=== PATIENT | female | born 1965 | race Caucasian/White ===

== ENCOUNTER → 2019-06-01 | Outpatient (CLI) | payer OTHER ==
[~2019-06-01] MED LIST: DESYREL 50MG50 MG PO; DIOVAN320 MG PO; EFFEXOR-XR150 MG PO; KLOR-CON SPRIN10 MEQ PO; MINOCYCLIN100 MG/CAP PO; NEURONTIN300 MG/CAP PO; NORVASC 5MG5 MG/TAB PO; PREDNISONE10 MG PO; PRILOSEC 20MG20 MG PO
== END ==
LOC: COL.LAB 13:08
DX: K50.10 Crohn's disease of large intestine without complications (principal)

== ENCOUNTER 2019-07-08 18:53 | Emergency (ER) | payer OTHER ==
[~2019-07-08] VITALS: Ht 165.1 cm; Wt 79.1 kg
[2019-07-08 18:59] VITALS: TEMP 98.9
[2019-07-08] MEDS ORDERED: PHENERGAN 25 TA25 MG PO (19:15)
[2019-07-08] MEDS ORDERED: NORCO 325 MG-7.1 TAB PO (19:15)
[2019-07-08 19:17] LABS: BASO # 0.1 (0.0-0.2); BASO % 0.6 % (0.0-2.0); EOS % 0.2 % (0-4.0); GRAN # 9.6 (1.4-6.5); HEMATOCRIT 46.7 % (37.0-47.0); HEMOGLOBIN 14.8 g/dl (12.5-16.0); LYMPH # 1.4 (1.2-3.4); LYMPH % 11.6 % (20.0-51.0); MEAN CELL VOLUME 88 fl (80.0-100.0); MEAN CORPUSCULAR HEMOGLOBIN 28 pg (27.0-31.0); MEAN CORPUSCULAR HGB CONC 32 g/dl (33.0-37.0); MEAN PLATELET VOLUME 10.1 fl (7.4-10.4); MONO # 1.1 (0.1-0.6); PLATELET COUNT 357 K/mm3 (130-400)
[2019-07-08 19:34] LABS: BILIRUBIN,TOTAL 0.7 mg/dL (0.0-1.0); C-REACTIVE PROTEIN 2.6 mg/dL (0.0-0.9); CALCIUM 9.2 mg/dL (8.4-10.2); CREATININE, serum 1.44 (0.52-1.25); POTASSIUM 3.7 mmol/L (3.4-5.0); TOTAL PROTEIN 7.9 gm/dL (6.4-8.2)
[2019-07-08 20:45] LABS: COLLECTION METHOD CLEAN CATCH
[2019-07-08 20:58] LABS: MUCOUS Present /lpf; PH 5 (5-8); SQUAMOUS EPITHELIAL 0-2 /hpf; URINE APPEARANCE Hazy; URINE BACTERIA Rare /hpf; URINE BILIRUBIN Negative (NEGATIVE); URINE BLOOD Negative (NEGATIVE); URINE COLOR Yellow; URINE GLUCOSE Negative (NEGATIVE); URINE KETONE Negative (NEGATIVE); URINE LEUKOCYTE ESTERASE Trace (NEGATIVE); URINE NITRATE Negative (NEGATIVE); URINE PROTEIN(semi-quant) Negative (NEGATIVE); URINE RBC 0-2 /hpf; URINE UROBILINOGEN Negative (NEGATIVE)
[2019-07-08 22:00] VITALS: BP 95/61; PULSE 82
== END 2019-07-08 22:00 | disposition home or self-care (01) ==
LOC: COL.ER 18:53
PROVIDERS: Family Medicine
DX: K50.90 Crohn's disease, unspecified, without complications (principal); E86.0 Dehydration
CPT/HCPCS: J2405; J7030; J7120

== ENCOUNTER 2019-07-26 01:36 | Emergency (ER) | payer OTHER ==
[~2019-07-26] VITALS: Ht 165.1 cm; Wt 76.4 kg
[~2019-07-26 01:36] MED LIST changes: +NORCO 325 MG-7.1 TAB PO; +PHENERGAN 25 TA25 MG PO
[2019-07-26 01:47] VITALS: TEMP 99.3
[2019-07-26] MEDS ORDERED: PHENERGAN 25 TA25 MG PO ×2 (02:26→08:22)
[2019-07-26 02:45] LABS: HEMATOCRIT 39.9 % (37.0-47.0); HEMOGLOBIN 13.3 g/dl (12.5-16.0); MEAN CELL VOLUME 84 fl (80.0-100.0); MEAN CORPUSCULAR HEMOGLOBIN 28 pg (27.0-31.0); MEAN CORPUSCULAR HGB CONC 33 g/dl (33.0-37.0); MEAN PLATELET VOLUME 9.8 fl (7.4-10.4); PLATELET COUNT 436 K/mm3 (130-400); RED BLOOD COUNT 4.78 M/mm3 (4.10-5.30)
[2019-07-26 02:57] LABS: ALANINE AMINOTRANSFERASE 7 U/L (4-34); ALBUMIN 2.5 gm/dL (3.5-5.0); ALKALINE PHOSPHATASE 100 U/L (50-136); ANION GAP 5 mmol/L (7-16); AST,SGOT 14 U/L (15-37); BILIRUBIN,TOTAL 0.8 mg/dL (0.0-1.0); BLOOD UREA NITROGEN 8 mg/dL (7-17); C-REACTIVE PROTEIN 7.2 mg/dL (0.0-0.9); CALCIUM 7.5 mg/dL (8.4-10.2); CARBON DIOXIDE 32 mmol/L (22-30); CHLORIDE 93 mmol/L (98-107); CREATININE, serum 0.63 (0.52-1.25); GLUCOSE 111 mg/dL (74-106); SODIUM 131 mmol/L (137-145); TOTAL PROTEIN 5.8 gm/dL (6.4-8.2)
[2019-07-26 03:05] LABS: LIPASE < 10 U/L (23-300); POTASSIUM 2.6 mmol/L (3.4-5.0)
[2019-07-26 03:09] LABS: LYMPHOCYTE 27 % (20.0-51.0); NEUTROPHILS 50 % (42.0-75.2); PLATELET ESTIMATE NORMAL (NORMAL)
[2019-07-26 05:31] LABS: COLLECTION METHOD CLEAN CATCH
[2019-07-26 05:37] LABS: MUCOUS Present /lpf; PH 6 (5-8); SQUAMOUS EPITHELIAL 0-2 /hpf; URINE APPEARANCE Clear; URINE BACTERIA Rare /hpf; URINE BILIRUBIN Negative (NEGATIVE); URINE BLOOD Negative (NEGATIVE); URINE COLOR Yellow; URINE GLUCOSE Negative (NEGATIVE); URINE KETONE Trace (NEGATIVE); URINE LEUKOCYTE ESTERASE Negative (NEGATIVE); URINE NITRATE Negative (NEGATIVE); URINE PROTEIN(semi-quant) Negative (NEGATIVE); URINE RBC 0-2 /hpf; URINE UROBILINOGEN Negative (NEGATIVE)
[2019-07-26 07:11] LABS: CALCIUM 6.8 mg/dL (8.4-10.2); CREATININE, serum 0.58 (0.52-1.25); POTASSIUM 3.3 mmol/L (3.4-5.0)
[2019-07-26 08:20] VITALS: BP 117/71; PULSE 73
[2019-07-26] MEDS ORDERED: ZOFRAN ODT4 MG PO (08:22)
[2019-07-26] MEDS ORDERED: K-DUR20 MEQ PO (08:22)
== END 2019-07-26 08:39 | disposition home or self-care (01) ==
LOC: COL.ER 01:36
PROVIDERS: Emergency Medicine; Physician Assistant
DX: E87.6 Hypokalemia (principal); I11.0 Hypertensive heart disease with heart failure; I50.9 Heart failure, unspecified; K21.9 Gastro-esophageal reflux disease without esophagitis; J44.9 Chronic obstructive pulmonary disease, unspecified; M79.7 Fibromyalgia; K50.90 Crohn's disease, unspecified, without complications; Z87.891 Personal history of nicotine dependence; Z90.49 Acquired absence of other specified parts of digestive tract; Z98.51 Tubal ligation status
CPT/HCPCS: C9113; J1170; J2405; J2550; J2930; J3010; J3480; J7030

== ENCOUNTER 2019-08-01 15:08 | Inpatient (IN) | payer OTHER ==
[~2019-08-01] VITALS: Ht 165.1 cm; Wt 73.4 kg
[~2019-08-01 15:08] MED LIST changes: +DILAUDID 2MG TAB2 MG PO; +DULOXETINE HCL40 MG PO; +K-DUR20 MEQ PO; +MEDROL 4MG DOSPA4 MG PO; +ZOFRAN ODT4 MG PO
[2019-08-01 16:07] LABS: HEMATOCRIT 42.6 % (37.0-47.0); HEMOGLOBIN 13.9 g/dl (12.5-16.0); MEAN CELL VOLUME 87 fl (80.0-100.0); MEAN CORPUSCULAR HEMOGLOBIN 29 pg (27.0-31.0); MEAN CORPUSCULAR HGB CONC 33 g/dl (33.0-37.0); MEAN PLATELET VOLUME 9.3 fl (7.4-10.4); PLATELET COUNT 463 K/mm3 (130-400); RED BLOOD COUNT 4.88 M/mm3 (4.10-5.30); REDCELL DISTRIBUTION WIDTH-CV 14.3 % (11.5-14.5)
[2019-08-01 16:19] LABS: ALBUMIN 2.7 gm/dL (3.5-5.0); BILIRUBIN,TOTAL 0.7 mg/dL (0.0-1.0); C-REACTIVE PROTEIN 3.5 mg/dL (0.0-0.9); CALCIUM 8.1 mg/dL (8.4-10.2); CREATININE, serum 0.74 (0.52-1.25); TOTAL PROTEIN 6.2 gm/dL (6.4-8.2)
[2019-08-01 17:04] LABS: BAND 1 % (0-10); LYMPHOCYTE 9 % (20.0-51.0); NEUTROPHILS 81 % (42.0-75.2)
[2019-08-01 17:06] LABS: HYPOCHROMIA 1+; PLATELET ESTIMATE INCREASED (NORMAL)
[2019-08-01 17:32] LABS: COLLECTION METHOD CLEAN CATCH
[2019-08-01 17:41] LABS: PH 6 (5-8); SQUAMOUS EPITHELIAL 0-2 /hpf; URINE APPEARANCE Clear; URINE BACTERIA Rare /hpf; URINE BILIRUBIN Negative (NEGATIVE); URINE BLOOD Negative (NEGATIVE); URINE COLOR Yellow; URINE GLUCOSE Negative (NEGATIVE); URINE KETONE Negative (NEGATIVE); URINE LEUKOCYTE ESTERASE Negative (NEGATIVE); URINE NITRATE Negative (NEGATIVE); URINE PROTEIN(semi-quant) Negative (NEGATIVE); URINE RBC 0-2 /hpf; URINE UROBILINOGEN Negative (NEGATIVE)
[2019-08-01 21:49] VITALS: BP 127/82; PULSE 91; TEMP 99.1
[2019-08-01 23:46] VITALS: BP 130/90; PULSE 81; TEMP 98.1
--- NOTE | 2019-08-02 00:23 | NUR ---
PATIENT CAME TO THE FLOOR FROM THE EMERGENCY ROOM. PATIENT WAS JUST COMPLAINING OF BEING COLD. WARM BLANKETS WERE GIVEN TO THE PATIENT. PATIENT IS ALERT AND ORIENTATED AND ABLE TO ANSWER QUESTIONS. PATIENT HAS AN INT TO HER LEFT ANTICUBIDAL. PATIENT HAS ANSWERED SOME QUESTIONS TO THE INFECTIOUS DISEASE SCREENING BUT THIS NURSE FEELS IF THEY ARE RELATED TO HER DIAGNOSIS BECAUSE SHE HAS NOT EATEN IN 5 DAYS, HAS NOT FELT GOOD, AND PATIENT HAS HAD NO ILL CONTACTS TO HER KNOWLEDGE.
[2019-08-02 03:39] VITALS: BP 119/75; PULSE 69; TEMP 97.5
--- NOTE | 2019-08-02 05:09 | NUR ---
PATIENT HAS HAD A PRETTY UNEVENTFUL NIGHT. SHE WAS ABLE TO REST AND NEEDED ONE DOSE OF PAIN MEDICATION. PATIENT TOLERATED HER CLEAR LIQUID DIET. IS INDEPENDENT IN HER ROOM. CALLS WHEN SHE NEEDS ANYTHING. DENIES ANY NEEDS AT THIS TIME. WILL REPORT OFF TO DAY SHIFT.
[2019-08-02 07:34] VITALS: BP 120/76; PULSE 75; TEMP 98
[2019-08-02 07:38] LABS: BASO % 0.3 % (0.0-2.0); GRAN # 10.4 (1.4-6.5); GRAN % 87.8 % (42.2-75.2); HEMATOCRIT 39.1 % (37.0-47.0); HEMOGLOBIN 12.7 g/dl (12.5-16.0); LYMPH # 1.1 (1.2-3.4); LYMPH % 8.9 % (20.0-51.0); MEAN CELL VOLUME 86 fl (80.0-100.0); MEAN CORPUSCULAR HEMOGLOBIN 28 pg (27.0-31.0); MEAN CORPUSCULAR HGB CONC 33 g/dl (33.0-37.0); MEAN PLATELET VOLUME 9.5 fl (7.4-10.4); MONO # 0.3 (0.1-0.6); MONO % 2.3 % (1.7-9.3); PLATELET COUNT 434 K/mm3 (130-400); RED BLOOD COUNT 4.53 M/mm3 (4.10-5.30); REDCELL DISTRIBUTION WIDTH-CV 14.4 % (11.5-14.5)
[2019-08-02 07:55] LABS: CALCIUM 7.8 mg/dL (8.4-10.2); CREATININE, serum 0.54 (0.52-1.25); POTASSIUM 3.8 mmol/L (3.4-5.0)
[2019-08-02 11:46] VITALS: BP 126/87; PULSE 75; TEMP 98.2
--- NOTE | 2019-08-02 13:37 | NUR ---
ANA ROSA met with the patient to complete initial intake. The patient lives in [place] with her , Tommy and their son, Titus. The patient denies DME use and receives assistance with ADLs from Tommy. The patient has not had HHS but may consider it. 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 The patient's PCP is THAI Deleon on [address] and patient receives medications from there as well. The patient does not have advanced directives in the EMR but was interested in a DPOA-HC form. Form provided. The patient plans to return home at discharge. There are no additional needs at this time.
[2019-08-02 15:48] VITALS: BP 124/83; PULSE 86; TEMP 97.8
[2019-08-02 16:51] LABS: CLOSTRIDIUM DIFF A/B NEG; CLOSTRIDIUM DIFF A/B INTERP No C.diff present
[2019-08-02] MEDS ORDERED: ZYRTEC 10MG10 MG PO (17:34)
[2019-08-02 19:19] VITALS: BP 133/85; PULSE 94; TEMP 97.8
--- NOTE | 2019-08-02 20:00 | NUR ---
Received report from [facility]. A/Ox4. c/o pain to abdomen, rate 4-5/10, prn pain meds adminsitered and zofran as requested by pt. Independent in room. Able to make needs known. IV to LAC intact, with fluids infusing, dressing CDI. Pt understands POC and NPO at midnight status. Needs met at this time. call light within reach.
[2019-08-02 23:18] VITALS: BP 134/88; PULSE 75; TEMP 97.6
[2019-08-03] VITALS (13 sets, daily range): BP systolic 110–136; BP diastolic 69–94; PULSE 54–73; TEMP 97.3–98.2
--- NOTE | 2019-08-03 03:12 | NUR ---
Pt requested pain and nausea meds for abdominal pain. PRN dialudid and zofran administered as requested. Warm blanket provided as requested. NPO since midnight. Call light within reach.
--- NOTE | 2019-08-03 06:22 | NUR ---
Administered pain and nausea meds as requested by pt. Scheduled meds given. Preop fluids and meds started. call light witin reach.
--- NOTE | 2019-08-03 06:55 | NUR ---
Report given to [facility].
--- NOTE | 2019-08-03 06:57 | NUR ---
Hugh transported pt via bed to procedure. report given to [facility]acarias OR
[2019-08-03 07:01] LABS: BASO # 0.1 (0.0-0.2); BASO % 0.3 % (0.0-2.0); GRAN # 15.6 (1.4-6.5); GRAN % 86.1 % (42.2-75.2); HEMATOCRIT 43.2 % (37.0-47.0); HEMOGLOBIN 13.9 g/dl (12.5-16.0); LYMPH # 1.3 (1.2-3.4); LYMPH % 7.2 % (20.0-51.0); MEAN CELL VOLUME 88 fl (80.0-100.0); MEAN CORPUSCULAR HEMOGLOBIN 28 pg (27.0-31.0); MEAN CORPUSCULAR HGB CONC 32 g/dl (33.0-37.0); MEAN PLATELET VOLUME 9.7 fl (7.4-10.4); MONO % 5.2 % (1.7-9.3); PLATELET COUNT 529 K/mm3 (130-400); REDCELL DISTRIBUTION WIDTH-CV 14.6 % (11.5-14.5)
[2019-08-03 07:05] LABS: ALBUMIN 2.8 gm/dL (3.5-5.0); BILIRUBIN,TOTAL 0.6 mg/dL (0.0-1.0); CALCIUM 8.4 mg/dL (8.4-10.2); CREATININE, serum 0.54 (0.52-1.25); MAGNESIUM 2.1 mg/dL (1.6-2.3); POTASSIUM 3.8 mmol/L (3.4-5.0); TOTAL PROTEIN 6.5 gm/dL (6.4-8.2)
--- NOTE | 2019-08-03 09:49 | NUR ---
PT RETURNED FROM PORT PLACEMENT THIS AM. PORT NOTED TO LEFT CHEST, LATERAL INCISION ABOVE ACCESSED PORT APPROX GLUED WITH TEGADERM ON TOP. NO DRAINAGE NOTED. PT REPORTS SITE TENDER 10/25. PRN DILAUDID GIVEN FOR THAT AND RECTAL, ROCÍO LEG PAIN. AOX4. AT BEDSIDE. BREAKFAST AT BEDSIDE AND PT CURRENTLY EATING. POST OP VITALS STARTED. IVF RESTARTED. PT REPORTS DIARHHREA X3 OVERNIGHT. CURRENTLY IN BATHROM. WILL CONT TO MONITOR
--- NOTE | 2019-08-03 19:22 | NUR ---
PATIENT UP AMBULATING INDEPENDENTLY IN ROOM OR WARD, HAS S.O. WITH HER AT TIME OF CHANGE OF SHIFT REPORT FROM DAY SHIFT NURSE, MÓNICA. IV FLUIDS INFUSING VIA INFUSAPORT TO LEFT CHEST WITH NO PROBLEMS. PATIENT STATING SHE IS WANTING HER NEXT PAIN PILL WITH HS MEDS TO BE TAKEN AT SAME WITH ZOFRAN IV, ORDERED EVERY 6HR PRN.
--- NOTE | 2019-08-04 03:00 | NUR ---
PATIENT SLEEPING W/NONLABORED, EVEN BREATHING OBSERVED. DOES NOT AWAKEN WHEN DOOR TO ROOM IS OPENED BY STAFF. IVF PATENT TO LEFT CHEST INFUSAPORT.
[2019-08-04 04:30] VITALS: BP 132/66; PULSE 53; TEMP 98.3
--- NOTE | 2019-08-04 07:30 | NUR ---
PATIENT RESTING IN BED DURING CHANGE OF SHIFT REPORT GIVEN TO DAY SHIFT NURSEDEREK.
[2019-08-04 07:38] VITALS: BP 122/70; PULSE 64; TEMP 97.9
[2019-08-04 07:38] LABS: BASO % 0.1 % (0.0-2.0); GRAN # 12.1 (1.4-6.5); GRAN % 87.6 % (42.2-75.2); LYMPH % 7.2 % (20.0-51.0); MEAN CELL VOLUME 89 fl (80.0-100.0); MEAN CORPUSCULAR HGB CONC 32 g/dl (33.0-37.0); MEAN PLATELET VOLUME 9.4 fl (7.4-10.4); MONO # 0.5 (0.1-0.6); MONO % 3.9 % (1.7-9.3); PLATELET COUNT 442 K/mm3 (130-400); RED BLOOD COUNT 3.88 M/mm3 (4.10-5.30)
[2019-08-04 07:39] LABS: HEMATOCRIT 34.6 % (37.0-47.0); MEAN CORPUSCULAR HEMOGLOBIN 28 pg (27.0-31.0)
[2019-08-04 07:56] LABS: CALCIUM 7.7 mg/dL (8.4-10.2); CREATININE, serum 0.55 (0.52-1.25); POTASSIUM 3.2 mmol/L (3.4-5.0)
[2019-08-04] MEDS ORDERED: BENTYL 10MG10 MG/CAP PO (10:29)
[2019-08-04] MEDS ORDERED: DILAUDID 2MG TAB2 MG PO (10:30)
[2019-08-04] MEDS ORDERED: PROTONIX 40MG T40 MG PO (10:56)
[2019-08-04] MEDS ORDERED: PREDNISONE10 MG PO (10:56)
[2019-08-04 12:25] VITALS: BP 132/77; PULSE 57; TEMP 97.8
--- NOTE | 2019-08-04 13:31 | NUR ---
The patient is to tentatively discharge home today, 08/03 with her . There are no additional needs at this time.
--- NOTE | 2019-08-04 13:59 | NUR ---
Patient is alert and oriented. pain at 3/10 this morning. Patient got written medication order for Prednisone, dilaudid 2mg, I called medication order for Protonic and Dicyclomine. patient was informed advised to schedule an appointment with GI and PCP provider. Heparinized 500Unit was infused before Port was deaccessed. Patient refused last dose of Potassium effer 20meq, she said she will take the last dose at home. Patient discharged with Spouse.
== END 2019-08-04 14:00 | disposition home or self-care (01) | DRG 641 ==
LOC: COL.ER 15:08 → MEDICAL 20:04 → SURG 08-02 12:34 → MEDICAL 08-02 12:35 → SURG 08-02 12:37 → MEDICAL 08-02 12:37
PROVIDERS: Physician Assistant; Surgery; ADMIT Student in an Organized Health Care Education/Training Program
PROC: 02HV33Z Insertion of Infusion Device into Superior Vena Cava, Percutaneous Approach (ICD-10-PCS; principal; 2019-08-03 07:30)
DX: E86.0 Dehydration (principal); K50.10 Crohn's disease of large intestine without complications; I10 Essential (primary) hypertension; E78.5 Hyperlipidemia, unspecified; M06.9 Rheumatoid arthritis, unspecified; M79.7 Fibromyalgia; G89.29 Other chronic pain; E87.1 Hypo-osmolality and hyponatremia; E87.6 Hypokalemia; D72.829 Elevated white blood cell count, unspecified; T38.0X5A Adverse effect of glucocorticoids and synthetic analogues, initial encounter; Z87.891 Personal history of nicotine dependence; Z98.51 Tubal ligation status; Z90.49 Acquired absence of other specified parts of digestive tract; Z98.84 Bariatric surgery status
CPT/HCPCS: 99223-AI; 99233-AI; 99239; C1788; G0378; J1170; J1644; J1650; J1885; J2405; J2930; J3480; J7030; J7120

== ENCOUNTER 2019-08-08 14:00 | Outpatient (RCR) | payer OTHER ==
[2019-06-27 11:54] LABS: HEMATOCRIT 42.1 % (37.0-47.0); HEMOGLOBIN 13.7 g/dl (12.5-16.0); MEAN CELL VOLUME 86 fl (80.0-100.0); MEAN CORPUSCULAR HEMOGLOBIN 28 pg (27.0-31.0); MEAN CORPUSCULAR HGB CONC 33 g/dl (33.0-37.0); MEAN PLATELET VOLUME 10.2 fl (7.4-10.4); PLATELET COUNT 384 K/mm3 (130-400); REDCELL DISTRIBUTION WIDTH-CV 14.1 % (11.5-14.5)
[2019-06-27 12:13] VITALS: BP 103/68; PULSE 108; TEMP 98.7
[2019-06-27 13:20] VITALS: BP 115/79; PULSE 99
[2019-06-27 13:30] VITALS: BP 117/85; PULSE 96
[2019-06-27 13:40] VITALS: BP 112/78; PULSE 96
[2019-06-27 13:50] VITALS: BP 113/80; PULSE 95
[2019-06-27 14:20] VITALS: BP 108/77; PULSE 97
[2019-07-11 14:00] LABS: HEMATOCRIT 43.8 % (37.0-47.0); HEMOGLOBIN 14.1 g/dl (12.5-16.0); MEAN CELL VOLUME 87 fl (80.0-100.0); MEAN CORPUSCULAR HEMOGLOBIN 28 pg (27.0-31.0); MEAN CORPUSCULAR HGB CONC 32 g/dl (33.0-37.0); MEAN PLATELET VOLUME 10.1 fl (7.4-10.4); PLATELET COUNT 361 K/mm3 (130-400); RED BLOOD COUNT 5.06 M/mm3 (4.10-5.30)
[2019-07-11 15:03] VITALS: BP 94/70; PULSE 75; TEMP 98.4
[~2019-08-08] VITALS: Ht 165.1 cm; Wt 78.4 kg
[~2019-08-08 14:00] MED LIST changes: +BENTYL 10MG10 MG/CAP PO; +PROTONIX 40MG T40 MG PO; +ZYRTEC 10MG10 MG PO
[2019-08-08 14:41] LABS: HEMATOCRIT 42.2 % (37.0-47.0); HEMOGLOBIN 13.6 g/dl (12.5-16.0); MEAN CELL VOLUME 89 fl (80.0-100.0); MEAN CORPUSCULAR HEMOGLOBIN 29 pg (27.0-31.0); MEAN CORPUSCULAR HGB CONC 32 g/dl (33.0-37.0); MEAN PLATELET VOLUME 9.4 fl (7.4-10.4); PLATELET COUNT 371 K/mm3 (130-400); RED BLOOD COUNT 4.77 M/mm3 (4.10-5.30)
[2019-08-08 16:09] VITALS: BP 142/96; PULSE 69; TEMP 98.9
[2019-08-25] MEDS ORDERED: [UNRECOGNIZED DRUG - REMARK] PO (17:15)
[2019-08-29] MEDS ORDERED: DILAUDID 2MG TAB2 MG PO (10:23)
[2019-08-29] MEDS ORDERED: DIFLUCAN 100MG100 MG PO (10:23)
[2019-08-29] MEDS ORDERED: K-DUR20 MEQ PO (10:24)
[2019-08-29] MEDS ORDERED: PREDNISONE10 MG PO (10:28)
[2019-08-29] MEDS ORDERED: ULTRAM 50MG TAB50 MG PO (13:48)
[2019-09-01] MEDS ORDERED: DILAUDID 4MG TAB4 MG PO (02:47)
== END 2019-08-08 16:28 | disposition home or self-care (01) ==
LOC: EUO 14:00
PROVIDERS: Internal Medicine Gastroenterology
DX: K50.111 Crohn's disease of large intestine with rectal bleeding (principal); Z79.899 Other long term (current) drug therapy
CPT/HCPCS: J0690; J1100; J1644; J2250; J2704; J3010; J3380; J7030; J7050

== ENCOUNTER 2019-08-17 11:02 | Emergency (ER) | payer OTHER ==
[~2019-08-17] VITALS: Ht 165.1 cm; Wt 70.0 kg
[2019-08-17 11:17] VITALS: PULSE 125; TEMP 96.1
[2019-08-17 12:00] LABS: BASO % 0.4 % (0.0-2.0); EOS % 0.1 % (0-4.0); GRAN # 8.9 (1.4-6.5); GRAN % 85.6 % (42.2-75.2); HEMATOCRIT 43.1 % (37.0-47.0); HEMOGLOBIN 14.3 g/dl (12.5-16.0); LYMPH # 0.6 (1.2-3.4); LYMPH % 6.1 % (20.0-51.0); MEAN CELL VOLUME 87 fl (80.0-100.0); MEAN CORPUSCULAR HEMOGLOBIN 29 pg (27.0-31.0); MEAN CORPUSCULAR HGB CONC 33 g/dl (33.0-37.0); MEAN PLATELET VOLUME 9.7 fl (7.4-10.4); MONO # 0.7 (0.1-0.6); PLATELET COUNT 297 K/mm3 (130-400); RED BLOOD COUNT 4.97 M/mm3 (4.10-5.30); REDCELL DISTRIBUTION WIDTH-CV 14.6 % (11.5-14.5)
[2019-08-17 12:17] LABS: ALBUMIN 3.2 gm/dL (3.5-5.0); C-REACTIVE PROTEIN 6.8 mg/dL (0.0-0.9); CALCIUM 8.6 mg/dL (8.4-10.2); CREATININE, serum 0.87 (0.52-1.25); TOTAL PROTEIN 6.6 gm/dL (6.4-8.2)
[2019-08-17 12:35] LABS: POTASSIUM 2.7 mmol/L (3.4-5.0)
[2019-08-17] MEDS ORDERED: PHENERGAN 25 TA25 MG PO ×2 (14:52→15:45)
[2019-08-17] MEDS ORDERED: K-DUR20 MEQ PO ×2 (14:52→15:45)
[2019-08-17] MEDS ORDERED: DILAUDID 2MG TAB2 MG PO (14:52)
[2019-08-17 15:50] VITALS: BP 129/97
== END 2019-08-17 15:50 | disposition home or self-care (01) ==
LOC: COL.ER 11:02
PROVIDERS: Emergency Medicine
DX: K50.90 Crohn's disease, unspecified, without complications (principal); E87.6 Hypokalemia; K62.89 Other specified diseases of anus and rectum; Z79.52 Long term (current) use of systemic steroids
CPT/HCPCS: J0780; J1170; J1200; J1885; J3475; J3480; J7030

== ENCOUNTER 2019-09-05 12:50 | Emergency (ER) | payer OTHER ==
[~2019-09-05] VITALS: Ht 165.1 cm; Wt 69.1 kg
[2019-09-05 12:56] VITALS: TEMP 98.4
[2019-09-05 14:02] LABS: HEMATOCRIT 39.1 % (37.0-47.0); HEMOGLOBIN 12.8 g/dl (12.5-16.0); MEAN CELL VOLUME 88 fl (80.0-100.0); MEAN CORPUSCULAR HEMOGLOBIN 29 pg (27.0-31.0); MEAN CORPUSCULAR HGB CONC 33 g/dl (33.0-37.0); MEAN PLATELET VOLUME 9.1 fl (7.4-10.4); PLATELET COUNT 335 K/mm3 (130-400); RED BLOOD COUNT 4.47 M/mm3 (4.10-5.30)
[2019-09-05 14:13] LABS: CALCIUM 8.3 mg/dL (8.4-10.2); CREATININE, serum 0.73 (0.52-1.25); TOTAL PROTEIN 6.4 gm/dL (6.4-8.2)
[2019-09-05 14:14] LABS: BILIRUBIN,TOTAL 0.6 mg/dL (0.0-1.0)
[2019-09-05 14:26] LABS: POTASSIUM 2.7 mmol/L (3.4-5.0)
[2019-09-05 15:03] LABS: EOSINOPHIL 1 % (0-4); LYMPHOCYTE 27 % (20.0-51.0); NEUTROPHILS 66 % (42.0-75.2)
[2019-09-05 15:06] LABS: ANISOCYTOSIS 1+; HYPOCHROMIA 1+; PLATELET ESTIMATE NORMAL (NORMAL)
[2019-09-05 16:20] VITALS: BP 112/84; PULSE 104
== END 2019-09-05 16:55 | disposition home or self-care (01) ==
LOC: COL.ER 12:50
PROVIDERS: Emergency Medicine
DX: K50.90 Crohn's disease, unspecified, without complications (principal); E87.6 Hypokalemia; I10 Essential (primary) hypertension; J44.9 Chronic obstructive pulmonary disease, unspecified; Z90.49 Acquired absence of other specified parts of digestive tract; Z79.52 Long term (current) use of systemic steroids
CPT/HCPCS: J1170; J1644; J2550; J3480; J7030

== ENCOUNTER → 2019-09-05 | Outpatient (CLI) | payer OTHER ==
[~2019-09-05] MED LIST changes: +DIFLUCAN 100MG100 MG PO; +DILAUDID 4MG TAB4 MG PO; +ULTRAM 50MG TAB50 MG PO; +[UNRECOGNIZED DRUG - REMARK] PO
== END ==
LOC: ZCOL.LAB 12:00
DX: E87.8 Other disorders of electrolyte and fluid balance, not elsewhere classified (principal)

== ENCOUNTER 2019-09-08 22:07 | Emergency (ER) | payer OTHER ==
[~2019-09-08] VITALS: Ht 165.1 cm; Wt 70.5 kg
[2019-09-09 00:15] LABS: BASO % 0.4 % (0.0-2.0); EOS # 0.1 (0.0-0.7); EOS % 1.1 % (0-4.0); GRAN % 67.3 % (42.2-75.2); HEMOGLOBIN 11.7 g/dl (12.5-16.0); LYMPH % 19.4 % (20.0-51.0); MEAN CELL VOLUME 87 fl (80.0-100.0); MEAN CORPUSCULAR HEMOGLOBIN 29 pg (27.0-31.0); MEAN CORPUSCULAR HGB CONC 33 g/dl (33.0-37.0); MONO # 1.1 (0.1-0.6); MONO % 10.9 % (1.7-9.3); PLATELET COUNT 368 K/mm3 (130-400); RED BLOOD COUNT 4.09 M/mm3 (4.10-5.30)
[2019-09-09 00:16] LABS: HEMATOCRIT 35.7 % (37.0-47.0)
[2019-09-09 00:31] LABS: ALBUMIN 2.9 gm/dL (3.5-5.0); BILIRUBIN,TOTAL 0.6 mg/dL (0.0-1.0); CALCIUM 8.3 mg/dL (8.4-10.2); CREATININE, serum 0.73 (0.52-1.25); POTASSIUM 3.2 mmol/L (3.4-5.0)
[2019-09-09 03:29] VITALS: BP 148/87; PULSE 84; TEMP 98.6
== END 2019-09-09 03:35 | disposition home or self-care (01) ==
LOC: COL.ER 22:07
PROVIDERS: Physician Assistant
DX: K50.90 Crohn's disease, unspecified, without complications (principal); Z90.49 Acquired absence of other specified parts of digestive tract; Z98.84 Bariatric surgery status; Z86.39 Personal history of other endocrine, nutritional and metabolic disease
CPT/HCPCS: J1170; J2550; J7030

== ENCOUNTER 2019-10-07 18:40 | Emergency (ER) | payer OTHER ==
[~2019-10-07] VITALS: Ht 165.1 cm; Wt 68.2 kg
[2019-10-07 18:58] VITALS: TEMP 97.5
[2019-10-07 20:07] LABS: BASO % 0.6 % (0.0-2.0); EOS # 0.4 (0.0-0.7); EOS % 6.4 % (0-4.0); GRAN # 3.1 (1.4-6.5); GRAN % 45.7 % (42.2-75.2); HEMATOCRIT 37.5 % (37.0-47.0); HEMOGLOBIN 11.8 g/dl (12.5-16.0); LYMPH # 2.4 (1.2-3.4); LYMPH % 35.5 % (20.0-51.0); MEAN CELL VOLUME 87 fl (80.0-100.0); MEAN CORPUSCULAR HEMOGLOBIN 28 pg (27.0-31.0); MEAN CORPUSCULAR HGB CONC 32 g/dl (33.0-37.0); MEAN PLATELET VOLUME 10.3 fl (7.4-10.4); MONO # 0.8 (0.1-0.6); MONO % 11.7 % (1.7-9.3); PLATELET COUNT 307 K/mm3 (130-400); RED BLOOD COUNT 4.29 M/mm3 (4.10-5.30); REDCELL DISTRIBUTION WIDTH-CV 12.9 % (11.5-14.5)
[2019-10-07 20:30] LABS: BILIRUBIN,TOTAL 0.5 mg/dL (0.0-1.0); C-REACTIVE PROTEIN 0.6 mg/dL (0.0-0.9); CALCIUM 8.6 mg/dL (8.4-10.2); CREATININE, serum 0.49 (0.52-1.25); TOTAL PROTEIN 6.1 gm/dL (6.4-8.2)
[2019-10-07 20:43] LABS: POTASSIUM 2.8 mmol/L (3.4-5.0)
[2019-10-07 22:44] LABS: COLLECTION METHOD CLEAN CATCH
[2019-10-07 22:51] LABS: MUCOUS Present /lpf; PH 6 (5-8); SQUAMOUS EPITHELIAL 0-2 /hpf; URINE APPEARANCE Clear; URINE BACTERIA None Seen /hpf; URINE BILIRUBIN Negative (NEGATIVE); URINE BLOOD Negative (NEGATIVE); URINE COLOR Yellow; URINE GLUCOSE Negative (NEGATIVE); URINE KETONE Negative (NEGATIVE); URINE LEUKOCYTE ESTERASE Negative (NEGATIVE); URINE NITRATE Negative (NEGATIVE); URINE PROTEIN(semi-quant) Negative (NEGATIVE); URINE RBC 0-2 /hpf; URINE UROBILINOGEN Negative (NEGATIVE)
[2019-10-08 00:20] VITALS: BP 106/83; PULSE 84
== END 2019-10-08 00:25 | disposition home or self-care (01) ==
LOC: COL.ER 18:40
PROVIDERS: Family Medicine
DX: E87.6 Hypokalemia (principal); R06.00 Dyspnea, unspecified; R51 Headache; Z79.52 Long term (current) use of systemic steroids; Z93.3 Colostomy status; Z88.0 Allergy status to penicillin; Z88.6 Allergy status to analgesic agent
CPT/HCPCS: J1170; J1644; J2405; J3480; J7120; Q9967

== ENCOUNTER 2020-03-10 14:21 | Emergency (ER) | payer MEDICARE, OTHER ==
[~2020-03-10] VITALS: Ht 165.1 cm; Wt 81.8 kg
[~2020-03-10 14:21] MED LIST changes: +NATURAL MAGNES200 MG PO
[2020-03-10 14:32] VITALS: BP 126/94; PULSE 82; TEMP 97.6
== END 2020-03-10 15:20 | disposition left against medical advice (07) ==
LOC: COL.ER 14:21
DX: M79.604 Pain in right leg (principal)

== ENCOUNTER 2020-03-27 13:37 | Emergency (ER) | payer MEDICARE, OTHER ==
[~2020-03-27] VITALS: Ht 165.1 cm; Wt 81.8 kg
[2020-03-27 13:45] VITALS: TEMP 98
[2020-03-27 14:39] LABS: BASO # 0.1 (0.0-0.2); BASO % 0.7 % (0.0-2.0); EOS # 0.3 (0.0-0.7); EOS % 3.1 % (0-4.0); GRAN # 4.2 (1.4-6.5); GRAN % 50.8 % (42.2-75.2); HEMATOCRIT 46.3 % (37.0-47.0); HEMOGLOBIN 15.8 g/dl (12.5-16.0); LYMPH # 2.9 (1.2-3.4); LYMPH % 35.1 % (20.0-51.0); MEAN CELL VOLUME 89 fl (80.0-100.0); MEAN CORPUSCULAR HEMOGLOBIN 31 pg (27.0-31.0); MEAN CORPUSCULAR HGB CONC 34 g/dl (33.0-37.0); MEAN PLATELET VOLUME 10.1 fl (7.4-10.4); MONO # 0.8 (0.1-0.6); MONO % 10.1 % (1.7-9.3); PLATELET COUNT 312 K/mm3 (130-400); RED BLOOD COUNT 5.18 M/mm3 (4.10-5.30); REDCELL DISTRIBUTION WIDTH-CV 11.9 % (11.5-14.5)
[2020-03-27 14:46] LABS: ALBUMIN 4.3 gm/dL (3.5-5.0); BILIRUBIN,TOTAL 0.6 mg/dL (0.0-1.0); CALCIUM 9.5 mg/dL (8.4-10.2); CREATININE, serum 0.71 (0.52-1.25); POTASSIUM 3.4 mmol/L (3.4-5.0); TOTAL PROTEIN 7.5 gm/dL (6.4-8.2)
[2020-03-27 15:52] LABS: COLLECTION METHOD CLEAN CATCH
[2020-03-27 16:00] LABS: MUCOUS Present /lpf; PH 5 (5-8); URINE APPEARANCE Hazy; URINE BACTERIA Occasional /hpf; URINE BILIRUBIN Negative (NEGATIVE); URINE BLOOD Negative (NEGATIVE); URINE COLOR Yellow; URINE GLUCOSE Negative (NEGATIVE); URINE KETONE Negative (NEGATIVE); URINE LEUKOCYTE ESTERASE 2+ (NEGATIVE); URINE NITRATE Negative (NEGATIVE); URINE PROTEIN(semi-quant) Negative (NEGATIVE); URINE UROBILINOGEN Negative (NEGATIVE)
[2020-03-27] MEDS ORDERED: OMNICEF 300MG300 MG PO (16:14)
[2020-03-27] MEDS ORDERED: ZOFRAN 4MG T4 MG/TAB PO (16:14)
[2020-03-27 16:22] VITALS: BP 117/74; PULSE 75
== END 2020-03-27 16:27 | disposition home or self-care (01) ==
LOC: COL.ER 13:37
PROVIDERS: Nurse Practitioner Primary Care
DX: N39.0 Urinary tract infection, site not specified (principal); R11.0 Nausea; R51.9 Headache, unspecified; K21.9 Gastro-esophageal reflux disease without esophagitis; Z88.6 Allergy status to analgesic agent; Z88.0 Allergy status to penicillin; Z79.52 Long term (current) use of systemic steroids
CPT/HCPCS: J1885; J2405; J7030

== ENCOUNTER → 2020-06-18 | Outpatient (CLI) | payer MEDICARE, OTHER ==
[~2020-06-18] MED LIST changes: +CENA K20 MEQ/15 PO; +CRUTCHES MC; +DIOVAN 80MG80 MG PO; +HUMIRA PEN40 MG/0.4 SQ; +LYRICA 75MG CAP75 MG PO; +NARCAN4 MG NS; +NORCO 325 MG-51 TAB PO; +NYSTATIN100000 U/G TOP; +OMNICEF 300MG300 MG PO; +PAXIL 20MG20 MG PO; +PROAIR HFA0.09 MG/AC IH; +STIOLTO RESPIMAT4 GM IH; +VOLTAREN GEL 1%1 TU TP; +ZOFRAN 4MG T4 MG/TAB PO
== END ==
LOC: COL.LAB 14:38
DX: K50.819 Crohn's disease of both small and large intestine with unspecified complications (principal)

== ENCOUNTER 2020-12-24 13:22 | Day surgery (SDC) | payer MEDICARE, OTHER ==
[~2020-12-24] VITALS: Ht 165.1 cm; Wt 89.6 kg
[~2020-12-24 13:22] MED LIST changes: -CENA K20 MEQ/15 PO; -CRUTCHES MC; -DIOVAN 80MG80 MG PO; -HUMIRA PEN40 MG/0.4 SQ; -LYRICA 75MG CAP75 MG PO; -NARCAN4 MG NS; -NORCO 325 MG-51 TAB PO; -NYSTATIN100000 U/G TOP; -PAXIL 20MG20 MG PO; -PROAIR HFA0.09 MG/AC IH; -STIOLTO RESPIMAT4 GM IH; -VOLTAREN GEL 1%1 TU TP
[2020-12-24 13:57] VITALS: BP 137/91; PULSE 95; TEMP 97.6
[2020-12-24] MEDS ORDERED: HUMIRA PEN40 MG/0.4 SQ (14:30)
[2020-12-24] MEDS ORDERED: PROAIR HFA0.09 MG/AC IH (14:31)
[2020-12-24] MEDS ORDERED: VOLTAREN GEL 1%1 TU TP (14:32)
[2020-12-24] MEDS ORDERED: DILAUDID 4MG TAB4 MG PO (14:34)
[2020-12-24] MEDS ORDERED: NARCAN4 MG NS (14:35)
[2020-12-24] MEDS ORDERED: NYSTATIN100000 U/G TOP (14:36)
[2020-12-24] MEDS ORDERED: ZOFRAN 4MG T4 MG/TAB PO (14:41)
[2020-12-24] MEDS ORDERED: PAXIL 20MG20 MG PO (14:41)
[2020-12-24] MEDS ORDERED: CENA K20 MEQ/15 PO (14:42)
[2020-12-24] MEDS ORDERED: LYRICA 75MG CAP75 MG PO (14:43)
[2020-12-24] MEDS ORDERED: EFFEXOR-XR150 MG PO (14:44)
[2020-12-24] MEDS ORDERED: STIOLTO RESPIMAT4 GM IH (14:44)
[2020-12-24] MEDS ORDERED: DIOVAN 80MG80 MG PO (14:44)
--- NOTE | 2020-12-24 15:45 | NUR ---
IV Maria Del Rosario completed and port a catheter flushed with 10ml of normal saline and will leave accessed for surgery tomorrow. Patient instructed to return at 0530 in the AM and to remain NPO after midnight. Patient dismissed to home driven by spouse.
== END 2020-12-24 15:45 | disposition home or self-care (01) ==
LOC: SDCO 13:22
DX: N20.1 Calculus of ureter (principal); K50.90 Crohn's disease, unspecified, without complications; K21.9 Gastro-esophageal reflux disease without esophagitis; M79.7 Fibromyalgia; J44.9 Chronic obstructive pulmonary disease, unspecified; C18.1 Malignant neoplasm of appendix; G89.29 Other chronic pain; Z93.2 Ileostomy status; Z98.84 Bariatric surgery status; Z79.899 Other long term (current) drug therapy; Z87.891 Personal history of nicotine dependence; Z79.891 Long term (current) use of opiate analgesic
CPT/HCPCS: J1956

== ENCOUNTER 2020-12-25 05:14 | Day surgery (SDC) | payer MEDICARE, OTHER ==
[~2020-12-25] VITALS: Ht 165.1 cm; Wt 91.0 kg
[~2020-12-25 05:14] MED LIST changes: +CENA K20 MEQ/15 PO; +DIOVAN 80MG80 MG PO; +HUMIRA PEN40 MG/0.4 SQ; +LYRICA 75MG CAP75 MG PO; +NARCAN4 MG NS; +NYSTATIN100000 U/G TOP; +PAXIL 20MG20 MG PO; +PROAIR HFA0.09 MG/AC IH; +STIOLTO RESPIMAT4 GM IH; +VOLTAREN GEL 1%1 TU TP
--- NOTE | 2020-12-25 05:23 | NUR ---
Patient ambulated to bay #1 without difficulty, no use of assistive devices. Medications and HX reviewed. Patient present with a L subclavian port that is already accessed. Cap was removed and scrubbed with alcohol wipe for 20 seconds before flush was connected. Port was flushed and has blood return. LR was connected and set to 100ml/hr. Patient verbalized understanding of procedure and signed the related consent. Warm blanket provided. Non-slip socks are on. Call cotton is at bedside. Side rails x2. Patient is currently watching TV and requested the lights to be turned off. Vitals obtained. SEE PHYSICAL ASSESSMENT.
[2020-12-25 05:42] VITALS: BP 129/64; PULSE 73; TEMP 98.3
--- NOTE | 2020-12-25 06:00 | NUR ---
First & last name + verified with patient and confirmed with wrist band.
--- NOTE | 2020-12-25 06:55 | NUR ---
Patient was taken back to the OR.
[2020-12-25 08:00] VITALS: BP 102/57; PULSE 65; TEMP 98.1
--- NOTE | 2020-12-25 08:00 | NUR ---
Patient arrived from PACU, escorted by Ashley SALOMON. Patient is sleepy but wakes up to her name and can answer questions. Vitals obtained. Side rails x2. Call cotton is at bedside.
[2020-12-25 08:15] VITALS: BP 100/57; PULSE 62
--- NOTE | 2020-12-25 08:15 | NUR ---
Vitals obtained. Patient requested a regular pepsi to drink. Will continue to monitor. Patient is more alert and oriented, x3.
[2020-12-25 08:30] VITALS: BP 117/76; PULSE 67
--- NOTE | 2020-12-25 08:30 | NUR ---
Patient is tolerating her pepsi and requested buttered toast with strawberry jam. Vitals obtained. Patient states having a sleep study scheduled due to low stats while sleeping. Patient will dip into the 80's while resting and then promply return to the mid 90's while awake. Will continue to monitor. Side rails x2.
[2020-12-25 08:45] VITALS: BP 119/65; PULSE 80
--- NOTE | 2020-12-25 09:01 | NUR ---
Patient was assisted with ambulating to BR at this time to void.
--- NOTE | 2020-12-25 09:02 | NUR ---
Vitals obtianed. Patient requested to take her home dose of Hydromorphine. However, RN informed her that she can take it at home or recieve the ordered PRN oxycodone of 5mg. Taking both would put her at a very high risk for an adverse reaction. Patient verbalized understanding and refused medication here. She states she will wait and take her personal medication at home. Patient expressed desire to be discharged, however she needs to void prior.
[2020-12-25 09:21] VITALS: BP 102/57; PULSE 65
--- NOTE | 2020-12-25 09:33 | NUR ---
Patient successfully voided earlier. Discharge instructions were reviewed. Patient verbalized understanding and signed related paperwork. Port was de-accessed by [facility] Gr[facility]do and [facility] More[facility]. Port was heprinized prior to removal. Bandage applied. Patient is currently changing into personal clothes.
--- NOTE | 2020-12-25 10:04 | NUR ---
Patient was escorted out via wheelchair to patient entrence by [facility] Gr[facility]do. Patient has her personal belongings and discharge instructions in hand. States no further questions or concerns. Friend Shirley is driving her home, patient was transferred into her care at this time.
== END 2020-12-25 09:50 | disposition home or self-care (01) ==
LOC: SDCO 05:14
DX: N20.1 Calculus of ureter (principal); E78.5 Hyperlipidemia, unspecified; I10 Essential (primary) hypertension; J44.9 Chronic obstructive pulmonary disease, unspecified; K21.9 Gastro-esophageal reflux disease without esophagitis; M79.7 Fibromyalgia; M19.90 Unspecified osteoarthritis, unspecified site; G89.29 Other chronic pain; M54.9 Dorsalgia, unspecified; Z90.49 Acquired absence of other specified parts of digestive tract; Z87.891 Personal history of nicotine dependence; Z79.899 Other long term (current) drug therapy; Z85.038 Personal history of other malignant neoplasm of large intestine
CPT/HCPCS: C1769; C2617; J0690; J1100; J1644; J1885; J2405; J2704; J3010; Q9967

== ENCOUNTER → 2021-01-06 | Outpatient (CLI) | payer MEDICARE, OTHER ==
[~2021-01-06] MED LIST changes: +CRUTCHES MC; +NORCO 325 MG-51 TAB PO
== END ==
LOC: COL.RAD 08:56
DX: K50.118 Crohn's disease of large intestine with other complication (principal); Z90.49 Acquired absence of other specified parts of digestive tract
CPT/HCPCS: A9585

== ENCOUNTER 2021-01-07 19:33 | Emergency (ER) | payer MEDICARE, OTHER ==
[~2021-01-07] VITALS: Ht 165.1 cm; Wt 90.0 kg
[~2021-01-07 19:33] MED LIST changes: -CRUTCHES MC; -NORCO 325 MG-51 TAB PO
[2021-01-07] MEDS ORDERED: NORCO 325 MG-51 TAB PO (20:29)
[2021-01-07 20:35] VITALS: BP 122/79; PULSE 91; TEMP 98.3
[2021-01-07] MEDS ORDERED: CRUTCHES MC (20:35)
== END 2021-01-07 20:35 | disposition home or self-care (01) ==
LOC: COL.ER 19:33
DX: S82.64XA Nondisplaced fracture of lateral malleolus of right fibula, initial encounter for closed fracture (principal); S92.351A Displaced fracture of fifth metatarsal bone, right foot, initial encounter for closed fracture; K21.9 Gastro-esophageal reflux disease without esophagitis; M19.90 Unspecified osteoarthritis, unspecified site; Z88.5 Allergy status to narcotic agent; Z79.1 Long term (current) use of non-steroidal anti-inflammatories (NSAID); Z79.899 Other long term (current) drug therapy; X50.1XXA Overexertion from prolonged static or awkward postures, initial encounter; Y93.01 Activity, walking, marching and hiking
CPT/HCPCS: 31868; L4386

== ENCOUNTER → 2022-05-20 | Outpatient (CLI) | payer MEDICARE, OTHER ==
[~2022-05-20] MED LIST changes: +CRUTCHES MC; +NORCO 325 MG-51 TAB PO
== END ==
LOC: COL.RAD 12:41
DX: G25.3 Myoclonus (principal)
CPT/HCPCS: A9575

== ENCOUNTER → 2023-01-15 | Outpatient (CLI) | payer MEDICARE, OTHER | LOC: COL.CARD 13:29 | DX: R06.02 Shortness of breath (principal) | CPT/HCPCS: J7674 ==

== ENCOUNTER 2023-02-10 06:07 | Inpatient (IN) | payer MEDICARE, OTHER ==
[2023-02-10] VITALS (620 sets, daily range): BP systolic 102–110; BP diastolic 64–81; PULSE 87–96; TEMP 98.4–100.3; O2SAT 85–100
[~2023-02-10] VITALS: Ht 165.1 cm; Wt 92.9 kg
[~2023-02-10 06:07] MED LIST changes: +PRIL40 PO; -PRILOSEC 20MG20 MG PO; +ZOFRAN INJ4 MG/2 ML IV
[2023-02-10 06:33] LABS: BASO % 0.2 % (0.0-2.0); GRAN # 10.4 K/mm3 (1.4-6.5); GRAN % 80.6 % (42.2-75.2); HEMATOCRIT 42.5 % (37.0-47.0); HEMOGLOBIN 13.9 g/dl (12.5-16.0); LYMPH # 1.6 K/mm3 (1.2-3.4); LYMPH % 12.2 % (20.0-51.0); MEAN CELL VOLUME 90 fl (80.0-100.0); MEAN CORPUSCULAR HEMOGLOBIN 29 pg (27-31); MEAN CORPUSCULAR HGB CONC 33 g/dl (33.0-37.0); MEAN PLATELET VOLUME 10.6 fl (7.4-10.4); MONO # 0.9 K/mm3 (0.1-0.6); MONO % 6.6 % (1.7-9.3); PLATELET COUNT 177 K/mm3 (130-400); RED BLOOD COUNT 4.75 M/mm3 (4.10-5.30)
[2023-02-10 07:01] LABS: COLLECTION METHOD CLEAN CATCH
[2023-02-10 07:04] LABS: ALBUMIN 3.2 gm/dL (3.5-5.0); BILIRUBIN,TOTAL 1.2 mg/dL (0.2-1.2); CALCIUM 8.7 mg/dL (8.4-10.2); CREATININE, serum 1.09 mg/dL (0.57-1.11); POTASSIUM 4.1 mmol/L (3.5-4.5); TOTAL PROTEIN 6.7 gm/dL (6.2-8.1)
[2023-02-10 07:18] LABS: PH 5.5 (5.0-8.5); URINE APPEARANCE Clear (CLEAR/HAZY); URINE BLOOD Negative (NEGATIVE); URINE COLOR Yellow (YELLOW); URINE GLUCOSE Negative (NEGATIVE); URINE KETONE TRACE (NEGATIVE); URINE NITRATE Negative (NEGATIVE); URINE PROTEIN(semi-quant) Negative (NEGATIVE); URINE UROBILINOGEN 0.2 E.U/dL (0.2-1.0)
[2023-02-10 07:19] LABS: MUCOUS Present (NOT PRESENT); SQUAMOUS EPITHELIAL 0-2 /hpf (0-10); URINE RBC None Seen /hpf (0-2)
[2023-02-10] MEDS ORDERED: [UNRECOGNIZED DRUG - CODE] SL ×2 (07:51→08:23)
[2023-02-10] MEDS ORDERED: LYRICA 150MG C150 MG PO (07:52)
[2023-02-10] MEDS ORDERED: MASON NATURAL2000 IU PO (08:41)
[2023-02-10] MEDS ORDERED: BIPAP (08:51)
--- NOTE | 2023-02-10 09:55 | NUR ---
Pt arrived to ICU 2 from ED at this time. Pt's Tommy at the bedside and answers all questions due to pt not being verbal at this time. Pt responds to painful stimuli, opens eyes spontaneously, does not follow commands. Left chest port-a-cath accessed; saline locked at this time. Pt does not appear to be in any pain. Requiring 5L oxymask to keep SPO2 >90%. Clothing to be taking home by . Dr. Maria A Nunez notified of pt's arrival to ICU; ABG, Chest CT, and MRI Head ordered at this time by provider. RT notified of ABG order. Call light in reach and bed alarm on.
[2023-02-10 11:41] LABS: TRICYCLIC ANTIDEPRESS URINE NEGATIVE
[2023-02-10 13:42] LABS: ARTERIAL BLD GAS O2 SATURATION 65.2 % (92-100); ARTERIAL BLD GAS TCO2 CT 31.9; ARTERIAL BLOOD GAS BASE EXCESS 3.1 (-2-2); ARTERIAL BLOOD GAS HCO3 30.2 meq/L (22-26); ARTERIAL BLOOD GAS PCO2 56.3 mmHg (35-45); ARTERIAL BLOOD GAS pH 7.35 (7.35-7.45)
[2023-02-10 13:47] LABS: ARTERIAL BLOOD GAS PO2 35.4 mmHg (80-100)
[2023-02-10 14:27] LABS: ARTERIAL BLD GAS O2 SATURATION 96.6 % (92-100); ARTERIAL BLD GAS TCO2 CT 31.9; ARTERIAL BLOOD GAS BASE EXCESS 4.5 (-2-2); ARTERIAL BLOOD GAS HCO3 30.4 meq/L (22-26); ARTERIAL BLOOD GAS PCO2 49.7 mmHg (35-45); ARTERIAL BLOOD GAS PO2 89.5 mmHg (80-100)
[2023-02-10 16:10] LABS: TOTAL PROTEIN,CSF 69 mg/dL (15-45)
[2023-02-10 22:32] LABS: CSF APPEARANCE CLEAR; CSF COLOR COLORLESS; CSF MONONUCLEAR 100 % (70-100); CSF POLYMORPHONUCLEAR 0 % (0-6); CSF RBC 1 /mm3 (0-0)
[2023-02-11] VITALS (1309 sets, daily range): BP systolic 113–151; BP diastolic 69–99; PULSE 60–90; TEMP 98.1–98.4; O2SAT 81–100
[2023-02-11 05:37] LABS: BASO % 0.4 % (0.0-2.0); EOS % 0.1 % (0.0-4.0); GRAN # 6.8 K/mm3 (1.4-6.5); LYMPH # 1.6 K/mm3 (1.2-3.4); LYMPH % 16.8 % (20.0-51.0); MEAN CELL VOLUME 89 fl (80.0-100.0); MEAN CORPUSCULAR HGB CONC 34 g/dl (33.0-37.0); MEAN PLATELET VOLUME 11.4 fl (7.4-10.4); MONO % 10.4 % (1.7-9.3); PLATELET COUNT 149 K/mm3 (130-400); RED BLOOD COUNT 3.95 M/mm3 (4.10-5.30); REDCELL DISTRIBUTION WIDTH-CV 12.5 % (11.5-14.5)
[2023-02-11 05:39] LABS: HEMATOCRIT 35.1 % (37.0-47.0); HEMOGLOBIN 11.8 g/dl (12.5-16.0); MEAN CORPUSCULAR HEMOGLOBIN 30 pg (27-31)
[2023-02-11 05:53] LABS: CALCIUM 8.2 mg/dL (8.4-10.2); CREATININE, serum 0.7 mg/dL (0.57-1.11); POTASSIUM 3.4 mmol/L (3.5-4.5)
--- NOTE | 2023-02-11 08:52 | NUR ---
pier worker called patient's spouse, Tommy [phone] due to having an altered mental status and being in isolation. Tommy informed SW they live together in [place] with their child. Spouse reports pt's PCP as Dr. Guerrero and obtains medications from [facility] with no difficulties. Pt uses a [employer] for DME and requires full assistance with ADLS. There is no DPOA-HC and Tommy reports they still need to look into this. SW advised they can create one once pt is alert and oriented.
--- NOTE | 2023-02-11 15:31 | NUR ---
1530; PT HAD ALDA DONE THIS AFTERNOON AT 1300 IT STARTED. PT RECVD 130MCG OF PROPOFOL PER ANESTHESIA AND DID WELL, VSS.
--- NOTE | 2023-02-11 15:33 | NUR ---
10:10 PT HAS POSITIVE BLOOD CULTURE, ONE OF THEM BEING DRAWN FROM PORT A CATH. SHE WAS + FOR [facility] EPIDERMIDIS AND HAD GRAM POSITIVE COCCI IN THE OTHER. DR FERNANDEZ HERE AND I REPORTED THIS TO HIM.
--- NOTE | 2023-02-11 23:00 | NUR ---
PT C/O PAIN AT ADAMS SITE. PROVIDER CALLED FOR ORDER TO D/C. ADAMS REMOVED PER ORDER.
[2023-02-12] VITALS (561 sets, daily range): BP systolic 118–154; BP diastolic 71–96; PULSE 60–98; TEMP 97.6–98.6; O2SAT 77–100
[2023-02-12 05:45] LABS: BASO % 0.4 % (0.0-2.0); EOS % 0.6 % (0.0-4.0); GRAN % 71.2 % (42.2-75.2); LYMPH # 1.3 K/mm3 (1.2-3.4); LYMPH % 18.1 % (20.0-51.0); MEAN CELL VOLUME 88 fl (80.0-100.0); MEAN CORPUSCULAR HEMOGLOBIN 30 pg (27-31); MEAN CORPUSCULAR HGB CONC 34 g/dl (33.0-37.0); MEAN PLATELET VOLUME 11.3 fl (7.4-10.4); MONO # 0.7 K/mm3 (0.1-0.6); MONO % 9.3 % (1.7-9.3); PLATELET COUNT 173 K/mm3 (130-400); RED BLOOD COUNT 4.07 M/mm3 (4.10-5.30); REDCELL DISTRIBUTION WIDTH-CV 12.2 % (11.5-14.5)
[2023-02-12 05:47] LABS: HEMATOCRIT 35.7 % (37.0-47.0)
[2023-02-12 05:57] LABS: CALCIUM 8.1 mg/dL (8.4-10.2); CREATININE, serum 0.59 mg/dL (0.57-1.11); POTASSIUM 3.2 mmol/L (3.5-4.5)
--- NOTE | 2023-02-12 08:29 | NUR ---
RECEIVED REPORT FROM NIGHTSHIFT RNTOÑITO. PATIENT RESTING IN BED WITH EYES CLOSED. BED IN A LOW POSITION. CALL LIGHT WITHIN REACH.
--- NOTE | 2023-02-12 08:44 | NUR ---
HEAD TO TOE ASSESSMENT COMPLETED. PATIENT IS ALERT AND ORIENTED. PUPILS EQUAL AND REACTIVE. HEART SOUNDS REGULAR WITH S1 AND S2 NOTED. LUNG SOUNDS CLEAR BILATERALLY IN UPPER AND LOWER LOBES. BOWEL SOUNDS ACTIVE. OSTOMY BAG TO RIGHT LOWER QUADRANT PRODUCING BROWN LIQUID STOOL. PATIENT IS ABLE TO AMBULATE WITH SBA TO THE TOILET TO VOID. PULSES PRESENT AND EQUAL BILATERALLY IN UPPER AND LOWER EXTREMITIES. PATIENT ABLE TO TAKE MEDICATIONS WITHOUT PROBLEM. BED IN A LOW POSITION. CALL LIGHT WITHIN REACH.
--- NOTE | 2023-02-12 09:55 | NUR ---
table worker completed a DPOA-HC with patient as she was alert and oriented. She listed her , Tommy as the only agent. SW had RT Melinda witness. SW provided original and copies. Copy in chart.
--- NOTE | 2023-02-12 13:31 | NUR ---
REPORT CALLED TO MEDICAL RN, ELHAM. PATIENT TRANSFERRING TO ROOM 318 WHEN ROOM IS CLEAN.
--- NOTE | 2023-02-12 14:35 | NUR ---
PATEINT ARRIVED FROM ICU IN STBALE CONDITION. PATIENT ORIENTED TO ROOM, CALL LIGHT WITH IN REACH.
--- NOTE | 2023-02-12 15:07 | NUR ---
Vancomycin Follow-up Pharmacy Note Current regimen: 750 MG IV Q12H Vancomycin trough: 5.86 Adjustments: Will increase Vancomycin to 750 mg IV q8h. Pharmacy will continue to closely monitor and check a trough prior to 4th new dose on 02/13/23.
--- NOTE | 2023-02-12 20:30 | NUR ---
UPON SHIFT ASSESSMENT, CESAR WAS AWAKE IN BED EATING DINNER TRAY. SHE IS AXO X4 AND VOICED SOME ANXIETY ABOUT HAVING PORT-A-CATH REMOVED. HER NEUROS ARE WNL AND COWS SCORE IS 4. SHE IS SLIGHTLY DIAPHORETIC-VSS WNL AND TELE WNL. 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 CESAR CURRENTLY DENIES CHEST PAIN AND SOA. BED ALARM ON AND CALL LIGHT WITHIN REACH.
--- NOTE | 2023-02-12 20:54 | NUR ---
RT IN ROOM, PATIENT REFUSED BIPAP. PULSE OX 96%.
--- NOTE | 2023-02-12 22:49 | NUR ---
PT DECLINES BIPAP FOR THE NIGHT. PT STATES SHE IS ANXIOUS FOR HER SURGERY TOMORROW AND WANTS TO TRY BIPAP AGAIN TOMORROW NIGHT.
[2023-02-13] VITALS (13 sets, daily range): BP systolic 120–159; BP diastolic 72–100; PULSE 60–82; TEMP 97.1–98.4
--- NOTE | 2023-02-13 06:37 | NUR ---
CESAR SLEPT THROUGH MOST OF THE NIGHT WITH NO NEW EMERGENT STATUS CHANGES. COWS SCORE REMAINS UNDER 4. SHE CONTINUES TO C/O OF RT PINKY FINGER NUMBNESS. NEUROS AND VSS REMAIN WNL AND TELE IS NS. SHE IS AWAITING PORT A CATH REMOVAL SCHEDULED FOR 08:30.
[2023-02-13 06:44] LABS: BASO % 0.4 % (0.0-2.0); EOS # 0.1 K/mm3 (0.0-0.7); EOS % 0.7 % (0.0-4.0); GRAN # 4.8 K/mm3 (1.4-6.5); GRAN % 64.4 % (42.2-75.2); HEMATOCRIT 38.8 % (37.0-47.0); HEMOGLOBIN 13.4 g/dl (12.5-16.0); LYMPH # 1.8 K/mm3 (1.2-3.4); LYMPH % 23.8 % (20.0-51.0); MEAN CELL VOLUME 85 fl (80.0-100.0); MEAN CORPUSCULAR HEMOGLOBIN 29 pg (27-31); MEAN CORPUSCULAR HGB CONC 35 g/dl (33.0-37.0); MONO # 0.8 K/mm3 (0.1-0.6); MONO % 10.4 % (1.7-9.3); PLATELET COUNT 224 K/mm3 (130-400); RED BLOOD COUNT 4.57 M/mm3 (4.10-5.30); REDCELL DISTRIBUTION WIDTH-CV 12.3 % (11.5-14.5)
[2023-02-13 07:00] LABS: CALCIUM 8.5 mg/dL (8.4-10.2); CREATININE, serum 0.59 mg/dL (0.57-1.11)
[2023-02-13 07:02] LABS: POTASSIUM 2.9 mmol/L (3.5-4.5)
--- NOTE | 2023-02-13 07:05 | NUR ---
PATIENT ASLEEP, RESTING IN BED, EASILY AROUSES TO NAME. PATIENT DENEIS ANY NEEDS OR COMPLAINTS AT THIA TIME. CALL LIGHT WITHIN REACH. PATIETN AWARE OF NPO STATUS.
[2023-02-13] MEDS ORDERED: DIOVAN 80MG80 MG PO (07:11)
--- NOTE | 2023-02-13 07:53 | NUR ---
THIS RN SPOKE WITH PRE OP NURSE TRISTAN AND INFORMED HEROF PATIENT LOW POT. PER ANESTHESIIOLOGIST RN TO CHECK POTASSIUM LEVEL AFTER EACH BAG, ONCE POT REACHES 3.2 RN TO CALL TRISTAN.
--- NOTE | 2023-02-13 09:00 | NUR ---
PER COW PROTOCOL PATIENT CAN BE TAKEN OFF D/T LOW SCORES FOR OVER 24 HOURS
--- NOTE | 2023-02-13 09:13 | NUR ---
PATIENT POT LEVEL CAME BACK AT 3.3 AFTER HER RECHECK. TRISTAN FROM PRE OP TOOK PATIENT DOWN FOR SURGERY.
--- NOTE | 2023-02-13 10:00 | NUR ---
PATIENT ARRIVED FROM PACU AWAKE ALERT AND OIRENTED, VSS. PATIENTS CALLL LIGHT WITHIN REACH, DRESSING TO LEFT CHEST CDI. POST OP VITALS INITIATED.
--- NOTE | 2023-02-13 11:23 | NUR ---
Data: Field Party Manager attempted visit. No bed in the room. Assessment: Patient unavailable for Field Party Manager to visit. Plan of Care: Chaplains will remain available as needed/desired whil Patient is admitted to this hospital.
--- NOTE | 2023-02-13 13:01 | NUR ---
MARIA E POST OP VSS. HER IS AT BEDSIDE. MARIA E DENIES ANY NEEDS OR COMPLAINTS AT THIS TIME. CALL LIGTH WITHIN REACH. FALL PRECUATIONS IN PLACE.
--- NOTE | 2023-02-13 15:00 | NUR ---
RN SPOKE WITH PHARMACIST ELIZABETH REGARDING PATIENT VANC TROPH. NO CHANGE TO MEDICATION, RN TO GIVE DOSE SCHEDULED
--- NOTE | 2023-02-13 18:00 | NUR ---
PATIENT AWAKE AND ALERT, SITITNG UP I BED. PATIENT DENIES ANY NEEDS OR COMPLAINTS AT THIS TIME. K PROTOCOL IN USE, CALL LIGHT WITHIN REACH, BED ALARM ON.
--- NOTE | 2023-02-13 21:00 | NUR ---
RT INFORMED THIS NURSE THAT ATTEMPTS WERE MADE TO PRESUADE PATIENT TO USE BIPAP FOR SLEEP APNEA, HOWEVER, PATIENT CONTINUES TO REFUSE.
--- NOTE | 2023-02-14 02:14 | NUR ---
UPON SHIFT ASSESMENT, CESAR WAS AWAKE IN BED AND AXO X 4. DRESSING TO LT UPPER CHEST R/T PORT REMOVAL WAS CDI. NEURO CHECKS WNL, VSS WNL. CESAR DENIES PAIN OR SOA AT THIS TIME. CALL LIGHT WITHIN REACH.
[2023-02-14 03:20] VITALS: BP 117/76; PULSE 74; TEMP 97.5
--- NOTE | 2023-02-14 05:07 | NUR ---
CESAR HAD A RESTFUL NIGHT AND C/O OF NO PAIN. SURGICAL SITE REMAINS CDI. VS WNL AND TELE IS NS. SHE EAGERLY AWAITS SHOWER THIS MORNING (OFFERED PM SHOWER, SHE REFUSED) AND POSSIBLE DISCHARGE.
[2023-02-14 06:59] LABS: BASO % 0.4 % (0.0-2.0); EOS # 0.1 K/mm3 (0.0-0.7); GRAN # 5.6 K/mm3 (1.4-6.5); GRAN % 58.8 % (42.2-75.2); HEMATOCRIT 43.6 % (37.0-47.0); HEMOGLOBIN 14.6 g/dl (12.5-16.0); LYMPH # 2.8 K/mm3 (1.2-3.4); LYMPH % 30.1 % (20.0-51.0); MEAN CELL VOLUME 86 fl (80.0-100.0); MEAN CORPUSCULAR HEMOGLOBIN 29 pg (27-31); MEAN CORPUSCULAR HGB CONC 34 g/dl (33.0-37.0); MEAN PLATELET VOLUME 10.8 fl (7.4-10.4); MONO # 0.9 K/mm3 (0.1-0.6); MONO % 9.2 % (1.7-9.3); PLATELET COUNT 292 K/mm3 (130-400); RED BLOOD COUNT 5.06 M/mm3 (4.10-5.30); REDCELL DISTRIBUTION WIDTH-CV 12.5 % (11.5-14.5)
[2023-02-14 07:11] LABS: CALCIUM 9.6 mg/dL (8.4-10.2); CREATININE, serum 0.66 mg/dL (0.57-1.11); POTASSIUM 3.4 mmol/L (3.5-4.5)
--- NOTE | 2023-02-14 08:00 | NUR ---
PATIENT AWAKE AND ALERT, SITTING UP IN BED. PATIENT STATED SHE FEELS READY FOR DISCHARGE. CALL LIGHT WITHIN REACH. PATIENT DENIES ANY NEEDS OR CONCERNS AT THIS TIME.
[2023-02-14 08:27] VITALS: BP 138/92; PULSE 72; TEMP 97.7
[2023-02-14] MEDS ORDERED: DOXYCYCLINE HY100 MG PO (10:52)
--- NOTE | 2023-02-14 11:52 | NUR ---
PATIENTS PICC LINE REMOVED BY SURGICAL CHARGE. PATIENTS PICC REMOVAL SITE DRESSING CDI. PATINET TOLERATED WELL.
--- NOTE | 2023-02-14 12:30 | NUR ---
PATIENT GIVEN DISCHARGE INSTRUCTIONS AND EDUCATION WITH HER PRESENT. PATIENTS PICC REMOVAL SITE CDI. PATIENT TAKEN VIA WHEELCHIAR TO ER ENTRANCE WHERE SHE LEFT IN STABLE CONDITION IN THE CARE OF HER .
[2023-02-16 13:10] LABS: HSV 2 DNA PCR QUAL Negative (Negative)
== END 2023-02-14 12:50 | disposition home or self-care (01) | DRG 871 ==
LOC: COL.ER 06:07 → ICU 09:15 → EDBEDREQ 09:36 → ICU 11:28 → MEDICAL 02-12 14:43
PROVIDERS: Internal Medicine Pulmonary Disease; Personal Emergency Response Attendant; ADMIT Internal Medicine
PROC: 0JPW0WZ Removal of Totally Implantable Vascular Access Device from Lower Extremity Subcutaneous Tissue and Fascia, Open Approach (ICD-10-PCS; principal; 2023-02-10)
PROC: 02HV33Z Insertion of Infusion Device into Superior Vena Cava, Percutaneous Approach (ICD-10-PCS; 2023-02-10)
DX: A41.9 Sepsis, unspecified organism (principal); G93.41 Metabolic encephalopathy; K50.90 Crohn's disease, unspecified, without complications; E87.6 Hypokalemia; M06.9 Rheumatoid arthritis, unspecified; J44.9 Chronic obstructive pulmonary disease, unspecified; R53.81 Other malaise
CPT/HCPCS: A4314; C1751; C9113; J0133; J0456; J0690; J0696; J2185; J2270; J2310; J2405; J2704; J3370; J3480; J7030; J7040; J7050; J7120; Q3014; Q9967

== ENCOUNTER 2023-02-19 00:08 | Emergency (ER) | payer MEDICARE, OTHER ==
[~2023-02-19] VITALS: Ht 165.1 cm; Wt 91.8 kg
[~2023-02-19 00:08] MED LIST changes: +BIPAP; +DOXYCYCLINE HY100 MG PO; +LYRICA 150MG C150 MG PO; +MASON NATURAL2000 IU PO; +[UNRECOGNIZED DRUG - CODE] SL
[2023-02-19 00:19] VITALS: BP 121/87; PULSE 89; TEMP 98.7
== END 2023-02-19 01:27 | disposition home or self-care (01) ==
LOC: COL.ER 00:08
DX: G56.21 Lesion of ulnar nerve, right upper limb (principal); Z88.5 Allergy status to narcotic agent

== ENCOUNTER 2023-05-14 13:45 | Outpatient (RCR) | payer MEDICARE, OTHER | END 2023-05-16 | disposition home or self-care (01) | LOC: WSOT | DX: G62.9 Polyneuropathy, unspecified (principal) ==

== ENCOUNTER 2023-06-20 12:11 | Emergency (ER) | payer MEDICARE, OTHER ==
[~2023-06-20] VITALS: Ht 165.1 cm; Wt 90.0 kg
[2023-06-20 12:18] VITALS: TEMP 98.1
[2023-06-20] MEDS ORDERED: hydrALAZINE 20 MG/ML 1 ML VIAL IV ONE ×2 (12:30→14:15)
[2023-06-20 12:44] LABS: BASO # 0.1 K/mm3 (0.0-0.2); BASO % 0.7 % (0.0-2.0); EOS # 0.2 K/mm3 (0.0-0.7); EOS % 1.5 % (0.0-4.0); GRAN % 65.5 % (42.2-75.2); HEMATOCRIT 45.8 % (37.0-47.0); HEMOGLOBIN 15.4 g/dl (12.5-16.0); LYMPH # 2.4 K/mm3 (1.2-3.4); LYMPH % 22.8 % (20.0-51.0); MEAN CELL VOLUME 87 fl (80.0-100.0); MEAN CORPUSCULAR HEMOGLOBIN 29 pg (27-31); MEAN CORPUSCULAR HGB CONC 34 g/dl (33.0-37.0); MEAN PLATELET VOLUME 10.8 fl (7.4-10.4); MONO % 9.2 % (1.7-9.3); PLATELET COUNT 256 K/mm3 (130-400); RED BLOOD COUNT 5.29 M/mm3 (4.10-5.30); REDCELL DISTRIBUTION WIDTH-CV 12.3 % (11.5-14.5)
[2023-06-20] MEDS ORDERED: Ketorolac 30 MG/ML VIAL IV ONE (12:45)
[2023-06-20 13:11] LABS: ALANINE AMINOTRANSFERASE 16 U/L (0-55); ALBUMIN 3.6 g/dL (3.4-4.8); ALKALINE PHOSPHATASE 89 U/L (40-150); ANION GAP 10 mmol/L (7-16); AST,SGOT 19 U/L (5-34); BILIRUBIN,TOTAL 0.6 mg/dL (0.2-1.2); BLOOD UREA NITROGEN 19 mg/dL (10-20); CALCIUM 9.9 mg/dL (8.4-10.2); CHLORIDE 105 mEq/L (98-107); CREATINE KINASE 81 U/L (29-168); GLUCOSE 94 mg/dL (70-99); POTASSIUM 3.4 mEq/L (3.5-4.5); SODIUM 142 mEq/L (136-145); TOTAL PROTEIN 7.3 g/dl (6.2-8.1)
[2023-06-20 13:17] LABS: TROPONIN-I < 0.010 ng/mL (0.00-0.033)
[2023-06-20] MEDS ORDERED: NORVASC 5MG5 MG/TAB PO (14:11)
[2023-06-20 14:30] VITALS: BP 151/85; PULSE 63
== END 2023-06-20 14:44 | disposition home or self-care (01) ==
LOC: COL.ER 12:11
PROVIDERS: Emergency Medicine
DX: I10 Essential (primary) hypertension (principal); Z79.899 Other long term (current) drug therapy; Z87.891 Personal history of nicotine dependence
CPT/HCPCS: J0360; J0780; J1885

== ENCOUNTER 2023-08-23 15:00 | Outpatient (RCR) | payer MEDICARE, OTHER | END 2023-09-15 | disposition home or self-care (01) | LOC: PT.GENESIS | DX: M48.02 Spinal stenosis, cervical region (principal); M54.41 Lumbago with sciatica, right side; M54.42 Lumbago with sciatica, left side ==